=== PATIENT | female | born 1940 | race Caucasian/White ===

== ENCOUNTER 2018-05-22 17:15 | Emergency (ER) | payer OTHER ==
[2018-05-22] MEDS ORDERED: IBUPROFEN 200 MG TAB PO ONE (17:46)
--- NOTE | 2018-05-22 17:51 | EDPHY ---
H & P Time Seen by Provider: 05/22/18 17:32 HPI/ROS: This patient reports a fall with head injury and leg injury 5 days prior to arrival. She slipped on ice at site of restaurant and explains that she fell down hard on against her face and was dazed for several seconds. She explains that she waited until today to come in because today for the 1st time she noticed significant ecchymosis and swelling with discomfort to her left leg that is described as mild intensity but worse with walking. She is concerned about a potential fracture. She also wonders if she had a concussion. ROS: Constitutional: No complaints HEENT: No dental injuries or other facial injuries other than right periorbital hematoma that has diminished in size terms of swelling without significant pain at this point. Neuro: She denies headache. She only had facial pain at the site of the impact. No focal numbness tingling weakness. She denies confusion. Integumentary: She reports an abrasion to the chin. No other lacerations or abrasions Musculoskeletal: No neck or back pain Pulmonary: She had left-sided chest wall pain for 1 or 2 days after the fall as since resolved. Currently no chest wall pain or dyspnea. Cardiovascular: No lightheadedness. GI: No abdominal pain, nausea or vomiting 10 point review of symptoms is performed and otherwise negative with exception of pertinent positives and negatives listed in HPI and ROS Past Medical/Surgical History: Hypertension Breast CA with mastectomy on the right Mild obesity Smoking Status: Never smoked Physical Exam: General Appearance: Alert, no distress. Eyes: Pupils equal and round no pallor or injection. Optic fundi are normal with no papilledema or hemorrhage ENT, Mouth: Mucous membranes moist. Patient has right periorbital ecchymosis without tenderness to zygoma. She also has an abrasion and contusion to the mandible with no significant mandibular tenderness and no malocclusion. No dental injuries. Ears: Clear TMs bilaterally with no hemotympanum Respiratory: There are no retractions, lungs are clear to auscultation. No chest wall tenderness Cardiovascular: Regular rate and rhythm. Gastrointestinal: Abdomen is soft and nontender, no masses, bowel sounds normal. Neurological: GCS 15. Throat is 3/3 5 min memory is intact. Cranial nerves 2- 12 grossly intact. No focal sensory or motor deficits are appreciated. Skin: Warm and dry, no rashes. Musculoskeletal: Neck is supple and nontender. Extremities are symmetrical, full range of motion. Psychiatric: Mood and affect are normal DIFFERENTIAL DIAGNOSIS: After history and physical exam differential diagnosis was considered for concussion, minor head injury, doubt cerebral contusion, facial contusions and abrasions, leg traumatic hematoma versus fracture Constitutional: Initial Vital Signs Temperature (C) 36.9 C 05/22/18 17:36 Heart Rate 94 05/22/18 17:36 Respiratory Rate 18 05/22/18 17:36 Blood Pressure 179/99 H 05/22/18 17:36 O2 Sat (%) 96 05/22/18 17:36 O2 Delivery Mode Room Air Allergies/Adverse Reactions: No Known Allergies Allergy (Verified 05/22/18 17:35) Home Medications: Medication Instructions Recorded Lisinopril 05/22/18 MDM/Departure - MDM Diagnostics: Tib-fib x-rays negative for acute fracture by my interpretation Imaging Results: Imaging Impressions Tibia/Fibula X-Ray 05/22/18 17:46 Impression: No acute osseous abnormality. Imaging: I viewed and interpreted images myself Medications Given: Discontinued Medications Ibuprofen (Motrin) 400 mg PO EDNOW ONE Stop: 05/22/18 17:47 Last Admin: 05/22/18 17:54 Dose: 400 mg ED Course/Re-evaluation: Ole wrap to left leg hematoma Ibuprofen with some improvement in discomfort. Counseled patient regarding concussion answered all her questions. I also discussed her traumatic hematoma diagnosis with her in described care plan for that in some detail-ice elevation compression etc. Discussion: Patient with concussion without LOC and leg hematoma without evidence of fracture by x-ray and without clinical evidence that would suggest cerebral contusion more significant head injury. - Depart Disposition: Home, Routine, Self-Care Clinical Impression: Concussion Qualifiers: Encounter type: initial encounter Loss of consciousness presence/duration: without LOC Qualified Code(s): S06.0X0A - Concussion without loss of consciousness, initial encounter Traumatic hematoma of lower leg Qualifiers: Encounter type: initial encounter Laterality: left Qualified Code(s): S80.12XA - Contusion of left lower leg, initial encounter Condition: Good Instructions: Concussion (ED), Hematoma (ED) Additional Instructions: Diagnosis: 1. Concussion without loss of consciousness 2. Traumatic hematoma of leg Plan: Ice 20 min at a time 3 times a day or more to your leg and prop up your leg above waist level whenever possible Ole wrap when your up and about for leg until symptoms improve Avoid activities but she risk for repeat head injury for the next week. Return emergency department if he developed unbearable headache, confusion, vomiting more than once or other concerns. Referrals: Laverne Smith CNP [Primary Care Provider] - As per Instructions
[2018-05-22 18:28] VITALS: BP 156/89
== END 2018-05-22 18:28 | disposition home or self-care (01) ==
LOC: CED 17:15
DX: S06.0X0A Concussion without loss of consciousness, initial encounter (principal); S80.12XA Contusion of left lower leg, initial encounter; I10 Essential (primary) hypertension; W00.0XXA Fall on same level due to ice and snow, initial encounter; Y99.9 Unspecified external cause status; Y92.511 Restaurant or cafe as the place of occurrence of the external cause; Y93.9 Activity, unspecified; Z85.3 Personal history of malignant neoplasm of breast; Z90.11 Acquired absence of right breast and nipple
CPT/HCPCS: 73590-PO; 99283-ER